=== PATIENT | male | born 1980 | race Caucasian/White ===

== ENCOUNTER 2019-07-06 09:15 | Emergency (ER) | payer OTHER, SELFPAY ==
[2019-07-06] MEDS ORDERED: Ketorolac Tromethamine 30 MG/ML VIAL ONE (11:45)
[2019-07-06] MEDS ORDERED: Dexamethasone 4 mg/ml Vial ONE (12:05)
[2019-07-06] MEDS ORDERED: Morphine 4 MG/ML VIAL ONE ×2 (12:06→13:34)
--- NOTE | 2019-07-06 13:01 | CT ---
EXAM: CT Lumbar Spine WO Con PROVIDED CLINICAL HISTORY: Back pain with radiculopathy COMPARISON: None FINDINGS: Lumbar alignment appears normal. Vertebral body heights and intervertebral disc space heights appear preserved. No lytic or blastic processes are seen. There is a broad-based disc bulge at L5-S1 with at least moderate central canal stenosis and potential for contact of the traversing bilateral S1 ner ve roots. No additional significant central canal or neural foraminal narrowing is apparent by CT. The visualized extraspinal soft tissues demonstrate an unremarkable unenhanced CT appearance. IMPRESSION: At least moderate central canal stenosis due to disc bulge at L5-S1 as above.
[2019-07-06 13:53] LABS: Bilirubin Negative (Negative); Blood, Urine Negative (Negative); Clarity Clear (Clear); Glucose, Urine (Dipstick) Normal (Negative); Leukocyte Negative Leu/uL (Negative); Nitrite Negative (Negative); Protein, Urine (Dipstick) 10 mg/dL (Neg-Trace); Urobilinogen Normal mg/dL (Less than 2)
== END 2019-07-06 14:00 | disposition home or self-care (01) ==
LOC: ERS 09:15
DX: M54.5 Low back pain (principal); X50.0XXA Overexertion from strenuous movement or load, initial encounter
CPT/HCPCS: 72131; 81003; 96361; 96372; 96374; 96376; J1100; J1885; J2270

== ENCOUNTER 2021-10-25 12:13 | Emergency (ER) | payer OTHER, SELFPAY ==
[2021-10-25] MEDS ORDERED: cefTRIAXone\\ROCEPHIN 500 MG VIAL ONE (14:02)
[2021-10-25] MEDS ORDERED: Lidocaine 1% PF 5 ML VIAL ONE (14:02)
[2021-10-26 20:55] LABS: Chlamydia by PCR Not Detected (NotDetected); GC by PCR Not Detected (NotDetected)
== END 2021-10-25 15:37 | disposition home or self-care (01) ==
LOC: ERS 12:13
DX: R36.9 Urethral discharge, unspecified (principal); Z20.2 Contact with and (suspected) exposure to infections with a predominantly sexual mode of transmission
CPT/HCPCS: 87491; 87591; 96372; 99283; J0696

== ENCOUNTER 2022-05-21 08:17 | Emergency (ER) | payer OTHER, SELFPAY ==
[2022-05-21] MEDS ORDERED: Ketorolac Tromethamine 30 MG/ML VIAL ONE (10:45)
== END 2022-05-21 10:49 | disposition home or self-care (01) ==
LOC: ERS 08:17
DX: M79.641 Pain in right hand (principal)
CPT/HCPCS: 96372; J1885